=== PATIENT | female | born 1995 | race African-American/Black ===

== ENCOUNTER 2021-03-13 06:26 | Inpatient (IN) | payer OTHER, SELFPAY ==
[2021-03-13] VITALS (12 sets, daily range): BP systolic 100–144; BP diastolic 54–84; PULSE 86–98; RESP 16–18; TEMP 36.4–36.7; O2SAT 97–100; BMI 30.1
--- NOTE | ~2021-03-13 | CT_ITS ---
EXAMINATION: CT soft tissue neck w con EXAM DATE: 03/13/2021 09:26 INDICATION: Dental abscess L side. TECHNIQUE: Spiral CT of the neck was performed following intravenous injection of 75 mL Omnipaque 350 . Axial, coronal and sagittal images were reviewed. The dose-length product (DLP) for this examinat ion was 467.86 mGy-cm. The exposure was tailored according to patient size (auto mA exposure control ), and iterative reconstruction (ASIR) was used as additional dose reduction technique. There is no prior study for comparison. FINDINGS: There is a cavity in the left lower middle molar, probably tooth #17, should be visible med ially upon direct visualization. There is periapical lucency surrounding this root, with small lucenc y extending through the bone medially which could be erosion from infection. There is fluid density p ocket extending along the inferior margin of the mandible extending posteriorly from this erosion, pr obably a small abscess measuring about 1.5 cm. Erosion has been indicated on the bone window axial im age 41, the abscess on the soft tissue windows axial image 44. There is surrounding left facial fat s tranding involving the cheek, left masseter. Also fat stranding surrounding the undersurface of the c hest. No retropharyngeal abscess. There are some reactive lymph nodes. The thyroid gland is unremarkable. The submandibular and parotid glands are symmetric. The superi or mediastinum is unremarkable. The airway is unremarkable. Parapharyngeal and pre-glottic fat pl anes are preserved. The opacified vasculature is patent. The orbits are unremarkable. Visualize d sinuses and mastoid air cells are well aerated. There are no osseous abnormalities identified. IMPRESSION: Left lower molar cavity extending to the root with apical lucency and small mandibular co rtical erosion, extension of infection to a small abscess underneath the mandible. Reviewed, dictated and finalized at location B. IMPRESSION: Left lower molar cavity extending to the root with apical lucency a nd small mandibular cortical erosion, extension of infection to a small abscess underneath the mandible.
--- NOTE | 2021-03-13 07:34 | ED.NECK ---
HPI - Neck Pain/Injury General Chief Complaint: Dental/Oral Stated Complaint: skin infection by mouth Time Seen by Provider: 03/13/21 07:11 Source: patient Mode of arrival: ambulatory Limitations: no limitations History of Present Illness HPI Narrative: 26-year-old female Ends of pain/swelling to left submandibular area and upper neck increasing over a couple days Associated with poor dentition but no gross cavities No stridor or hoarseness and she is able to swallow but there is some mild trismus and impairment of mouth opening No fever Related Data Allergies Allergy/AdvReac Type Severity Reaction Status Date / Time No Known Allergies Allergy Verified 03/13/21 08:20 Review of Systems Review of Systems: All systems reviewed & are unremarkable except as noted in HPI and below Constitutional: Constitutional: Reports no additional constitutional complaints, Denies chills, Denies fever(s) and Denies headache(s) Eyes: Eyes: Reports no additional eye complaints and Denies change in vision ENT: Reports dysphagia, Denies headache(s) and Reports sore throat Cardiovascular: Cardiovascular: Denies chest pain and Denies dyspnea Respiratory: Respiratory: Denies cough and Denies dyspnea Gastrointestinal: Gastrointestinal: Denies vomiting Genitourinary: Genitourinary: Denies urinary frequency Musculoskeletal: Musculoskeletal: Denies deformity and Denies numbness Integumentary/Breasts: Skin/Breast: Denies wounds Exam Const: General: cooperative, no acute distress and alert Orientation/consciousness: patient oriented x3 (alert) HENMT: Head: normocephalic and atraumatic Ears: external ears normal General nose exam: no epistaxis Face and sinus: sinuses nontender Mouth: Yes Normal oral and palatal mucosa present and Yes moist mucous membranes Other: There is large area of firm induration along the mid left mandible extending beneath it and into the submandibular space seemingly consistent with abscess The floor of the mouth is not indurated Eyes: Conjunctivae: conjunctivae normal EOM: EOMs intact bilaterally Neck: Neck: normal visual inspection, no lymphadenopathy, no meningeal signs, supple and no JVD Resp: Effort & Inspection: normal respiratory effort and not labored Auscultation: clear to auscultation bilaterally and other (BS =) Cardio: Rate: regular rate Rhythm: regular rhythm Heart sounds: no murmurs Skin: General skin exam: normal color and no rashes or lesions noted Neuro: General: patient oriented x3 (alert) and moves all extremities Speech: normal speech Extrem: General: normal to inspection Psych: Affect: normal affect Course Course Emergency Course: dr lee consulted, swa pt in ed and drained and irrigated at bedside Vital Signs Vital signs: Vital Signs Temperature 36.7 C 03/13/21 06:33 Pulse Rate 98 03/13/21 06:33 Respiratory Rate 18 03/13/21 06:33 Blood Pressure 144/84 H 03/13/21 06:33 Pulse Oximetry 100 03/13/21 06:33 Temperature 36.7 C 03/13/21 06:33 Pulse Rate 94 03/13/21 10:42 Respiratory Rate 18 03/13/21 10:42 Blood Pressure 127/54 L 03/13/21 10:42 Pulse Oximetry 97 03/13/21 10:42 MDM - Neck Pain/Injury Lab Data Result diagrams: 03/13/21 07:44 03/13/21 08:28 Labs: Lab Results 03/13/21 03/13/21 Range/Units 07:44 08:28 WBC 13.1 H (4.5-10.0) K/mm3 RBC 4.64 (4.2-5.4) M/mm3 Hgb 12.1 (12.0-15.0) g/dL Hct 38.2 (37.0-47.0) % MCV 82.3 (80-100) fl MCH 26.1 (26-34) pg MCHC 31.7 L (32-36) g/dl RDW 12.7 (11.5-14.5) % Plt Count 181 (150-375) k/mm3 MPV 12.7 H (7.4-10.4) fl Immature Gran % (Auto) 0.3 (0-0.5) % Neut % (Auto) 83.0 H (45.5-73.1) % Lymph % (Auto) 8.3 L (18.3-44.2) % [place] % (Auto) 7.9 (2.6-8.5) % Eos % (Auto) 0.2 (0-4.4) % Baso % (Auto) 0.3 (0.2-1.2) % Lymph # (Auto) 1.09 (0.9-3.2) K/mm3 [place] # (Auto) 1.0 H (0.1-0.6) K/mm3 E
[2021-03-13 07:49] LABS: Basophils Percent Auto 0.3 % (0.2-1.2); Eosinophils Percent Auto 0.2 % (0-4.4); Hematocrit 38.2 % (37.0-47.0); Hemoglobin 12.1 g/dL (12.0-15.0); Immature Granulocyte Absolute 0.04 K/mm3 (0.00-0.031); Immature Granulocyte Percent A 0.3 % (0-0.5); Lymphocytes Absolute Auto 1.09 K/mm3 (0.9-3.2); Lymphocytes Percent Auto 8.3 % (18.3-44.2); Mean Corpuscular HGB Conc 31.7 g/dl (32-36); Mean Corpuscular Hemoglobin 26.1 pg (26-34); Mean Corpuscular Volume 82.3 fl (80-100); Mean Platelet Volume 12.7 fl (7.4-10.4); Monocytes Percent Auto 7.9 % (2.6-8.5); Neutrophils Absolute Auto 10.9 K/mm3 (1.3-6.7); Platelet Count Result 181 k/mm3 (150-375); Red Blood Count 4.64 M/mm3 (4.2-5.4); Red Cell Distribution Width 12.7 % (11.5-14.5); White Blood Count 13.1 K/mm3 (4.5-10.0)
[2021-03-13] MEDS: ACETAMINOPHEN 500 MG TABLET 1000 MG PO (08:22)
[2021-03-13] MEDS: AMPICILLIN SULB 3 GM/NS 100 ML 3 GM/100 ML VIAL IVPB (08:22)
--- NOTE | 2021-03-13 08:26 | PC.NURSE ---
2nd set of blood cultures drawn prior to anbx ivpb. tylenol for pain
[2021-03-13 08:48] LABS: Anion Gap 9 mmol/L (8-16); Blood Urea Nitrogen 5 mg/dL (7-17); Calcium 10.5 mg/dL (8.4-10.2); Carbon Dioxide 28 mmol/L (22-30); Chloride 105 mmol/L (98-107); Estimated CRCL calculation 87 ml/min; Estimated Glomerular Filt Rate > 60; Glucose 96 mg/dL (65-105); Sodium 142 mmol/L (137-145)
--- NOTE | 2021-03-13 12:07 | WPDPROCEDUR ---
Procedures Abscess I/D Site: face Side (if applicable): left Anesthetic used: with epi Technique: incised with #11 blade and probed loculations Amount of fluid (mL): 100 Irrigation: Yes Packing used?: lis drain Comments: Face abscess/odontogenic abscess opened, lis placed, purulence cultured
--- NOTE | 2021-03-13 12:08 | WPDCN ---
Assessment and Plan Assessment and plan (1) Facial abscess: Code(s): L02.01 - Cutaneous abscess of face Status: Acute Assessment and Plan: Recommend clindamycin 10 day course Warm compresses and frequent compression/expression of purulence by patient Ok for diet If the patient is admitted I will call am of 03/14/21 and discuss with nursing/care team. Please have the patient follow up with me 03/16/21 for further evaluation. HPI Data of Consult Date/Time: 03/13/21 12:08 Primary Care Provider: Daniel Alberto, Consult Narrative Narrative: Dolly Rosado is a 26 year old female with a left sided facial odontogenic abscess. Consulted for treatment. Patient on several days of penicillin. Scheduled for extraction next week. Meds Home Medications and Allergies Allergies Allergy/AdvReac Type Severity Reaction Status Date / Time No Known Allergies Allergy Verified 03/13/21 08:20 Vital Signs Vital Signs - 24 hr 03/13/21 06:33 03/13/21 06:42 03/13/21 06:45 Temperature 36.7 C Pulse Rate 98 Respiratory Rate 18 Blood Pressure 144/84 H Pulse Oximetry 100 100 100 03/13/21 07:00 03/13/21 07:01 03/13/21 07:15 Temperature Pulse Rate Respiratory Rate Blood Pressure 129/83 Pulse Oximetry 100 99 99 03/13/21 07:31 03/13/21 10:42 Temperature Pulse Rate 94 Respiratory Rate 18 Blood Pressure 127/54 L Pulse Oximetry 100 97 Exam HENMT: Other: Trusmus, left infected molar noted. Left fluctuance. opened copius purulence, irrigated, lis placed Results Labs CBC & Chem 7: 03/13/21 07:44 03/13/21 08:28 Labs: Short CBC 03/13/21 Range/Units 07:44 WBC 13.1 H (4.5-10.0) K/mm3 Hgb 12.1 (12.0-15.0) g/dL Hct 38.2 (37.0-47.0) % Plt Count 181 (150-375) k/mm3 BMP 03/13/21 08:28 Sodium 142 Potassium 4.0 Chloride 105 Carbon Dioxide 28 BUN 5 L Creatinine 0.70 Glucose 96 Calcium 10.5 H
--- NOTE | 2021-03-13 12:35 | PM.IMHP ---
H&P: HPI History of Present Illness Date/Time: 03/13/21 12:35 Patient is a 26 year old female that presented to the ED with complaints of mouth swelling and pain of the left jaw. Patient stated that this all started about 1 week ago. She stated that when she noticed the pain and swelling that she went and was seen at [facility], which she stated they gave her penicillin, Tylenol with codeine, and ibuprofen. She stated that this was helping, but she was unable to control the pain. 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 Currently, she rates her pain at a 10/10 stating that it is sharp and throbbing in nature. She admits to headaches, fevers, generalized weakness, nausea, increased appetite, difficulty swallowing/eating/chewing. She denies chest pain, shortness of breath, vomiting, abdominal pain, dizziness, syncope, or lightheadedness. Chief Complaint: Facial swelling Review of Systems Review of Systems: All systems reviewed & are unremarkable except as noted in HPI and below Constitutional: Constitutional: Reports fatigue, Reports fever(s), Reports headache(s), Reports increased appetite and Reports weakness Eyes: Eyes: Reports no additional eye complaints ENT: Reports system reviewed and no additional complaints, except as documented Cardiovascular: Cardiovascular: Denies chest pain, Denies diaphoresis, Denies leg edema and Denies lightheadedness Respiratory: Respiratory: Denies cough and Denies dyspnea Gastrointestinal: Gastrointestinal: Reports no additional gastrointestinal complaints Genitourinary: Genitourinary: Reports no additional female genitourinary complaints Musculoskeletal: Musculoskeletal: Reports no additional musculoskeletal complaints Integumentary/Breasts: Skin/Breast: Reports swelling (left lower jaw) and Reports change in pigmentation Neurologic: Reports headache(s) Psychiatric: Psychiatric: Reports no additional psychiatric complaints [facility] Past Medical History Medical History Family History Family History (Updated 03/13/21 @ 12:49 by MIGUEL Long) Mother Hypertension Father Hypertension Grandparent Hypertension Maternal grandmother and grandfather Cancer maternal grandmother Other Diabetes mellitus Social History Social History (Updated 03/13/21 @ 13:55 by MIGUEL Long) Social History: Patient is a full code and surrogate is listed as her mother Smoking packs per day: 0.25 Smoking cigarettes per day: 5.0 Years smoked: 2 Smoking pack-years: 0.50 Smoking status: Current every day smoker Tobacco type: cigarettes Alcohol intake: never Substance use: never Living arrangements: with family Additional living arrangements comments: Lives with 2 year old daughter Occupation/Education: occupation Additional occupation/education comments: [employer] Gender identity (if verbalized by the patient): Female Sexual Orientation (if Verbalized by the Patient): Straight or Heterosexual Meds Home Medications and Allergies Home Medications Medication Instructions Recorded Confirmed Type No Home Medications 03/13/21 03/13/21 History Allergies Allergy/AdvReac Type Severity Reaction Status Date / Time No Known Allergies Allergy Verified 03/13/21 08:20 Vital Signs Vital Signs - 24 hr 03/13/21 06:33 03/13/21 06:42 03/13/21 06:45 Temperature 36.7 C Pulse Rate 98 Respiratory Rate 18 Blood Pressure 144/84 H Pulse Oximetry 100 100 100 03/13/21 07:00 03/13/21 07:01 03/13/21 07:15 Temperature Pulse Rate Respiratory Rate Blood Pressure 129/83 Pulse Oximetry 100 99 99 03/13/21 07:31 03/13/21 10:42 Temperature Pulse Rate 94 Respiratory Rate 18 Blood Pressure 127/54 L Pulse Oximetry 100 97 Exam Const: General: well developed, al
[2021-03-13] MEDS: HYDROcodone/acetaminophen (*CRX) 5-325 MG TABLET 1 TAB PO ×2 (16:16→20:33)
--- NOTE | 2021-03-13 16:16 | PC.NURSE ---
medicated for pain prior to transport to floor
[2021-03-13] MEDS: LACTATED RINGERS 1,000 ML 80 ML IV CONT (16:45)
--- NOTE | 2021-03-13 16:46 | ADMGEN ---
This patient, Dolly Rosado, was admitted to Medical Room 347-. Patient/family oriented to hospital policies and general routines including ID bracelet, bed and alarms, visiting hours, pain management, procedures, bathroom and other care routines, personal items, smoking policy, room service/diet, and visiting hours. Information on how to activate the Rapid Response Team has been discussed. Patient/Family are encouraged to report perceived risks to care and to ask questions if they do not understand what they are told or what they should do.
[2021-03-13] MEDS: CLINDAMYCIN 300 MG in DEXTROSE 5% IN WATER 50 ML 104 MG IVPB (19:01)
[2021-03-13] MEDS: NICOTINE (*PBKC) 7 MG PATCH 1 PATCH TRANSDERM (22:52)
[2021-03-14] MEDS: HYDROcodone/acetaminophen (*CRX) 5-325 MG TABLET 1 TAB PO ×2 (00:03→07:22)
[2021-03-14] MEDS: CLINDAMYCIN 300 MG in DEXTROSE 5% IN WATER 50 ML 104 MG IVPB ×3 (00:05→11:32)
[2021-03-14] MEDS: LACTATED RINGERS 1,000 ML 80 ML IV CONT (05:22)
[2021-03-14 05:37] VITALS: BP 115/68; PULSE 83; RESP 16; TEMP 36; O2SAT 99
[2021-03-14 06:04] LABS: Basophils Percent Auto 0.4 % (0.2-1.2); Eosinophils Absolute Auto 0.2 K/mm3 (0-0.3); Eosinophils Percent Auto 1.4 % (0-4.4); Hematocrit 37.2 % (37.0-47.0); Hemoglobin 11.9 g/dL (12.0-15.0); Immature Granulocyte Absolute 0.04 K/mm3 (0.00-0.031); Immature Granulocyte Percent A 0.4 % (0-0.5); Lymphocytes Absolute Auto 1.54 K/mm3 (0.9-3.2); Lymphocytes Percent Auto 13.5 % (18.3-44.2); Mean Corpuscular Hemoglobin 25.8 pg (26-34); Mean Corpuscular Volume 80.7 fl (80-100); Mean Platelet Volume 11.5 fl (7.4-10.4); Monocytes Absolute Auto 0.6 K/mm3 (0.1-0.6); Monocytes Percent Auto 4.9 % (2.6-8.5); Neutrophils Absolute Auto 9.1 K/mm3 (1.3-6.7); Neutrophils Percent Auto 79.4 % (45.5-73.1); Platelet Count Result 219 k/mm3 (150-375); Red Blood Count 4.61 M/mm3 (4.2-5.4); Red Cell Distribution Width 12.4 % (11.5-14.5); White Blood Count 11.4 K/mm3 (4.5-10.0)
[2021-03-14 06:19] LABS: Potassium 3.9 mmol/L (3.4-5.0)
[2021-03-14 06:27] LABS: Albumin Level 3.9 g/dL (3.5-5.1)
[2021-03-14 06:28] LABS: Alanine Aminotransferase 13 U/L (4-35); Alkaline Phosphatase 43 U/L (38-126); Anion Gap 7 mmol/L (8-16); Aspartate Amino Transferase 21 U/L (14-36); Bilirubin,Total 0.4 mg/dL (0.2-1.3); Blood Urea Nitrogen 4 mg/dL (7-17); Calcium 9.4 mg/dL (8.4-10.2); Carbon Dioxide 28 mmol/L (22-30); Chloride 104 mmol/L (98-107); Estimated CRCL calculation 119 ml/min; Estimated Glomerular Filt Rate > 60; Glucose 97 mg/dL (65-105); Magnesium 2.1 mg/dL (1.6-2.3); Sodium 139 mmol/L (137-145)
[2021-03-14 08:20] VITALS: TEMP 36
[2021-03-14] MEDS: NICOTINE (*PBKC) 7 MG PATCH 1 PATCH TRANSDERM (08:41)
[2021-03-14] MEDS: ONDANSETRON INJ 4 MG/2 ML VIAL IV PUSH (10:52)
[2021-03-14] MEDS: ACETAMINOPHEN 325 MG TABLET 650 MG PO (11:37)
--- NOTE | 2021-03-14 12:29 | PM.DS ---
DS: Admitting Diagnosis Admitting Diagnosis Admitting Diagnosis: Facial abscess DS: Discharge Diagnosis Discharge Diagnosis (1) Facial abscess: Onset Date: 03/06/21 Code(s): L02.01 - Cutaneous abscess of face Status: Acute Assessment and Plan: Manage pain with [place] 5/325 Augmentin q12 hour for 14 days Change dressing when soiled Follow ENT instructions Keep appointment with ENT for further treatment (2) Acute pain associated with inflammation: Code(s): R52 - Pain, unspecified Status: Acute Assessment and Plan: [place] for severe pain Take Tylenol for mild pain (3) Dysphagia: Qualifiers: Dysphagia type: other dysphagia Qualified Code(s): R13.19 - Other dysphagia Code(s): R13.10 - Dysphagia, unspecified Status: Acute Assessment and Plan: Chew and swallow slowly. (4) Smoking 1/2 pack a day or less: Code(s): F17.210 - Nicotine dependence, cigarettes, uncomplicated Status: Acute Assessment and Plan: Consider not smoking while [place] drain is in place. Consider quitting smoking. DS: Summary Hospital Course Reason for hospitalization: Facial abscess Hospital Course: Patient presented to the ED with complaints of facial swelling and pain. Patient stated that this all started about a week ago. She was seen and treated at [facility]. She was given antibiotics and pain medications. In the ED she was seen by ENT who drained the abscess of the right lower jaw and placed a lis drain. She was admitted and monitored overnight to the hospital for IV clindamycin which she has received 3 doses. Indications were provided for her post op care by ENT. It was instructed that the patient take all of her medications even if she feels better. She was also instructed about coming back if the swelling gets worse, she can not breath or swallow, or any other alarm signs. The patient verbalized understanding and all questions were answered. Time spent discussing smoking cessation with patient: 3 to 10 minutes Status at Discharge Functional status at discharge: independent ambulation Overall status at discharge: patient is progressing back to baseline Time Spent with Patient Time attestation: Total time spent providing and/or coordinating discharge services: 35 minutes Time spent: Less than 30 minutes Exam Const: General: healthy appearing, comfortable, no acute distress, well developed, alert and awake Nutritional Appearance: average body habitus and well nourished Orientation/consciousness: patient oriented x3 Limitations: physical limitations (mouth swelling) HENMT: Ears: TM's normal bilaterally Eyes: General: appearance normal, both eyes and all related structures Neck: Neck: full ROM and trachea midline Thyroid: thyroid normal Other: Patient has severe edema in the left lower jaw, and cheek Resp: Effort & Inspection: normal respiratory effort, able to speak in complete sentences and symmetric chest movement Auscultation: clear to auscultation bilaterally Other: Airway is patent and open. Cardio: Rate: regular rate Rhythm: regular rhythm GI: Inspection: normal to inspection Auscultation: normal bowel sounds Rectal Exam: deferred : General: Yes deferred Skin: General skin exam: normal color Trauma: other (surgical incision with drain ) Neuro: General: patient oriented x3, gait normal and moves all extremities Cranial nerves: Yes Facial sensation intact/muscles of mastication intact, Yes Intact sense of smell present and Yes Bilaterally intact EOM present Cognition (Neuro): normal cognition Speech: normal speech Motor exam (neuro): 5/5 motor strength present throughout Sensory Exam: normal sensation Extrem: General: normal to inspection Right upper extremity: normal to inspection Left upper extremity: normal to inspection Right lower extremity: normal to inspection Lef
[2021-03-14 14:00] VITALS: BP 116/55; PULSE 96; RESP 16; TEMP 36.2; O2SAT 99
[2021-03-14] MEDS: IBUPROFEN 400 MG TABLET 800 MG PO (15:44)
== END 2021-03-14 16:13 | disposition home or self-care (01) | DRG 383 ==
LOC: ANHED 12:44 → ANH3MED 15:30
PROVIDERS: Nurse Practitioner; Admitting Provider Hospitalist; Emergency Provider Emergency Medicine; PCP Internal Medicine; Visit Provider Hospitalist
DX: L02.01 Cutaneous abscess of face (principal); R13.19 Other dysphagia; R52 Pain, unspecified; K03.81 Cracked tooth; F17.210 Nicotine dependence, cigarettes, uncomplicated
CPT/HCPCS: 36415; 70491; 80048; 80053; 81025; 83735; 84100; 85025; 87040; 87070; 87075; 87077; 87205; 96365; 99285; A9270; J0295; J2405; J7120; Q9967